=== PATIENT | male | born 1965 | race Caucasian/White ===

== ENCOUNTER 2016-07-19 12:55 | Outpatient (CLI) | payer OTHER ==
--- NOTE | 2016-07-19 16:12 | DIAGNOSTIC IMAGING REPORT ---
PROCEDURE: XR SHOULDER INJECTION (PRE MR) INDICATION: RT ROTATOR CUFF TEAR UNSPECIFIED TECHNIQUE: Written informed consent was obtained from the patient prior to the procedure. Risks discussed included but were not limited to bleeding, infection, injury to adjacent structures, pain, temporary anesthesia and allergic reaction. It was agreed to proceed. RPO position on the fluoroscopy table. Preliminary fluoroscopic imaging demonstrated normal anatomy. An appropriate skin entry site was chosen and marked. The skin was prepped and draped in the usual sterile fashion. Skin and subcutaneous tissue was anesthetized thoroughly with 1% lidocaine. Under intermittent fluoroscopic guidance, a 22 gauge needle was directed into superior right glenohumeral joint. Through this, a 12.1 ml mixture of 6 ml of Isovue 200, 3 ml of 1% Xylocaine, 3 ml 0.5% bupivacaine, and 0.1 ml gadolinium was injected. Three fluoroscopic spot images were acquired documenting the needle in position during and following joint filling. Total fluoro time 0.9 minutes. Cumulative dose 257.51 mGy. The needle was removed, hemostasis was achieved, the skin was cleansed, and a sterile bandage was applied. The patient was helped off the table. The patient was transferred to the MRI suite. He tolerated the procedure well and there were no immediate complications. COMPARISON: None. FINDINGS: Intra-articular position confirmed. IMPRESSION: 1. Successful fluoroscopic guided pre MRI right shoulder arthrogram. 2. MR arthrography is pending.
--- NOTE | 2016-07-19 17:27 | DIAGNOSTIC IMAGING REPORT ---
PROCEDURE: MR UPPER EXT JOINT W/CONT-RT INDICATION: RT ROTATOR CUFF TEAR UNSPECIFIED TECHNIQUE: Axial T1, T1 fat sat, gradient echo, coronal proton density, proton density fat sat, T1 fat sat, sagittal proton density, proton density fat sat, and T1 fat sat sequences were obtained through the left shoulder following uncomplicated administration of intra-articular gadolinium earlier the same day. COMPARISON: 02/04/2012 FINDINGS: Rotator cuff: Mild bursal surface irregularity of the supraspinatus fibers and minor tendinopathy distally. Minor undersurface fraying of the distal subscapularis tendon. The infraspinatus tendon is intact. Biceps tendon: Normal in position and signal. Rotator interval structures are intact. Osseous structures and articular surfaces: There has been slight progression of now more prominent undersurface spur along the lateral aspect of the acromion. The acromion is type 2 and demonstrates mild lateral downsloping. Mild to moderate hypertrophy at the acromioclavicular joint and undersurface spurring of the distal clavicle is fairly stable compared to the prior study the glenohumeral articulation is normal. No significant cartilage loss or marginal spur formation. Labral ligamentous complex: There is Re complex morphology with absence of the anterior labrum and anterior/ superior labrum, and thickening of the middle glenohumeral ligament. 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 The posterior and inferior labrum appears intact. No paralabral cyst. Supporting ligaments of the humeral head are intact. Fluid, soft tissues, and joint space: Iatrogenic joint effusion. No suspicious capsular thickening. There has been mild interval atrophy of the supraspinatus muscle compared to the prior study. No intramuscular edema. No suspicious cysts. The neurovascular bundle is normal. IMPRESSION: 1. Slight progression of moderate sub acromial impingement with partial bursal surface tearing of the supraspinatus. 2. Interval healing of partial tearing of the infraspinatus. 3. [place] complex morphology without labral tear.
== END 2016-07-19 23:00 ==
LOC: XR SRH 12:55
PROC: BP181ZZ Fluoroscopy of Right Shoulder using Low Osmolar Contrast (ICD-10-PCS; principal; 2016-07-19)
PROC: BP3 Imaging, Non-Axial Upper Bones, Magnetic Resonance Imaging (MRI) (ICD-10-PCS; principal; 2016-07-19)
DX: M75.101 Unspecified rotator cuff tear or rupture of right shoulder, not specified as traumatic (principal)